=== PATIENT | female | born 1985 | race African-American/Black ===

== ENCOUNTER 2018-06-14 19:27 | Emergency (ER) | payer BC | END 2018-06-14 19:50 | disposition home or self-care (01) | LOC: MADERS 19:27 | DX: S01.511A Laceration without foreign body of lip, initial encounter (principal); X58.XXXA Exposure to other specified factors, initial encounter | CPT/HCPCS: 99281 ==

== ENCOUNTER 2018-10-19 10:28 | Emergency (ER) | payer BC ==
[2018-10-19] MEDS ORDERED: Adacel (T-DAP) 0.5 ML SYRINGE ONE (11:20)
== END 2018-10-19 11:15 | disposition home or self-care (01) ==
LOC: MADERS 10:28
DX: S60.475A Other superficial bite of left ring finger, initial encounter (principal); W50.3XXA Accidental bite by another person, initial encounter
CPT/HCPCS: 90471; 90715

== ENCOUNTER 2018-12-09 14:29 | Emergency (ER) | payer BC ==
--- NOTE | 2018-12-09 15:13 | RAD ---
PORTABLE CHEST: HISTORY: Dyspnea. FINDINGS: The lung aden appear clear. No evidence of infiltrate. Vascular markings normal. Heart and media stinum unremarkable. IMPRESSION: No acute process. POS: [facility]
[2018-12-09 16:02] LABS: #Basophils 0.1 thou/uL (0.0-0.2); #Eosinphils 0.2 thou/uL (0.0-0.7); #Lymphocytes 2.3 thou/uL (1.20-3.40); #Monocytes 0.4 thou/uL (0.11-0.59); #Neutrophils 2.2 thou/uL (1.40-6.50); %Basophils 1.9 % (0.0-1.0); %Eosinophils 3.8 % (0.0-10.0); %Lymphocytes 43.7 % (21.0-51.0); %Monocytes 7.9 % (0.0-10.0); %Neutrophils 42.8 % (42.0-75.0); Hemoglobin 12.2 g/dL (12.0-16.0); Mean Corpuscular HGB CONC 31.4 g/dL (32.0-36.0); Mean Corpuscular Hemoglobin 28.5 pg (27.0-31.0); Mean Corpuscular Volume 90.8 fL (78.0-98.0); Mean Platelet Volume 10.2 fL (7.4-10.4); Platelet Count 185 thou/uL (130-400); RBC Distribution Width 11.8 % (11.5-14.5); Red Blood Cell (RBC) Count 4.28 mill/uL (4.20-5.40); White Blood Cell (WBC) Count 5.2 thou/uL (4.8-10.8)
[2018-12-09 16:16] LABS: ALT (SGPT) 13 U/L (8-55); AST (SGOT) 16 U/L (5-34); Albumin 4.2 g/dL (3.5-5.0); Alkaline Phosphatase 42 U/L (40-150); Anion Gap 13 mmol/L (10-20); BUN (Urea Nitrogen) 20 mg/dL (7.0-18.7); Bilirubin, Total 0.5 mg/dL (0.2-1.2); Calc. Creatinine Clearance 0 mL/min (70-130); Calcium 9.4 mg/dL (7.8-10.44); Carbon Dioxide 25 mmol/L (22-29); Chloride 105 mmol/L (98-107); Estimated GFR-MDRD 76; Globulin 2.8 g/dL (2.4-3.5); Glucose 81 mg/dL (70-105); Potassium 4.1 mmol/L (3.5-5.1); Sodium 139 mmol/L (136-145)
== END 2018-12-09 17:27 | disposition left against medical advice (07) ==
LOC: MADERS 14:29
DX: F41.9 Anxiety disorder, unspecified (principal)
CPT/HCPCS: 36415; 71045; 80053; 83880; 84484; 85025; 85379; 93005

== ENCOUNTER 2019-01-04 20:40 | Emergency (ER) | payer BC | END 2019-01-04 22:25 | disposition home or self-care (01) | LOC: MADERS 20:40 | DX: B34.9 Viral infection, unspecified (principal); J02.9 Acute pharyngitis, unspecified | CPT/HCPCS: 87081; 87430; 87804; 99283 ==

== ENCOUNTER 2019-07-19 19:52 | Emergency (ER) | payer BC | END 2019-07-19 20:26 | disposition home or self-care (01) | LOC: MADERS 19:52 | DX: S83.91XA Sprain of unspecified site of right knee, initial encounter (principal); X50.1XXA Overexertion from prolonged static or awkward postures, initial encounter | CPT/HCPCS: 99283 ==

== ENCOUNTER 2020-05-02 07:03 | Emergency (ER) | payer BC ==
[2020-05-02] MEDS ORDERED: Lidocaine 1% w/Epinephrine 1:100K 20 ML VIAL ONE (07:24)
== END 2020-05-02 08:17 | disposition home or self-care (01) ==
LOC: MADERS 07:03
DX: S61.512A Laceration without foreign body of left wrist, initial encounter (principal); W26.8XXA Contact with other sharp object(s), not elsewhere classified, initial encounter
CPT/HCPCS: 12002

== ENCOUNTER 2020-05-21 15:54 | Emergency (ER) | payer BC, SELFPAY | END 2020-05-21 16:29 | disposition home or self-care (01) | LOC: MADERS 15:54 | DX: S61.512D Laceration without foreign body of left wrist, subsequent encounter (principal) | CPT/HCPCS: 99282 ==

== ENCOUNTER 2025-04-26 15:03 | Emergency (ER) | payer BC | END 2025-04-26 16:45 | disposition home or self-care (01) | LOC: MADERS 15:03 | DX: M25.561 Pain in right knee (principal) | CPT/HCPCS: 99283 ==